=== PATIENT | female | born 1990 | race Caucasian/White ===

== ENCOUNTER 2025-04-14 09:17 | Outpatient (OUT) | payer BC, SELFPAY ==
--- NOTE | 2025-04-14 09:26 | CT_ITS ---
The [address] [address] Patient Name: SARAH GRAY MRN: [id number] date: 1990 Sex: F Assigned Patient Location: CT Current Patient Location: CT Accession/Order Number: [id number] Exam Date: 04/14/2025 13:13 Report Date: 04/14/2025 13:17 At the request of: CHIOMA NIX Procedure: CT sinus wo con CT Sinuses Without contrast TECHNIQUE: Axial imaging with coronal reconstruction. The CT exam was performed using one or more the following dose reduction techniques: Automated exposure control, adjustment of the MA and/or Kv according to patient size, or use of the iterative reconstruction technique. HISTORY: Left maxillary pain. Left ear pain. COMPARISON: None NASAL PASSAGEWAYS: Rightward deviation of nasal septum with bony spur. Patent nasal passageways. OSTIOMEATAL COMPLEXES: Unremarkable SINUSES: Mucosal thickening of the maxillary sinuses greater on the left. Opacification of bilateral ethmoid air cells anteriorly and posteriorly. Small retention cyst or mucosal polyp of the left portion of the frontal sinus. BONY STRUCTURES: Intact SOFT TISSUES: No soft tissue abnormality seen. NASOPHARYNX: No nasopharyngeal abnormality is identified. MASTOIDS: Unremarkable CT/CT sinus wo con IMPRESSION: Maxillary sinus Mucosal thickening greater on the left. Partial opacification of ethmoid sinus. Retention cyst or mucosal polyp of the left portion of frontal sinus. Impression dictated by: Brad Cam M.D. 04/14/2025 1:17 PM Dictation Location: [place] [address] Electronically authenticated by: [id number] Y Date: 04/14/2025 13:17
== END 2025-04-14 09:18 | disposition home or self-care (01) ==
PROVIDERS: PCP Nurse Practitioner Family; Visit Provider Nurse Practitioner Family
DX: J34.89 Other specified disorders of nose and nasal sinuses (principal)
CPT/HCPCS: 70486